=== PATIENT | male | born 1965 | race African-American/Black ===

== ENCOUNTER 2022-09-24 20:28 | Emergency (ER) | payer OTHER ==
[~2022-09-24] VITALS: Ht 177.8 cm; Wt 73.0 kg
[2022-09-24] MEDS ORDERED: METOCLOPRAMIDE HCL 10MG TABLET PO ONE (21:00)
[2022-09-24] MEDS ORDERED: ACETAMINOPHEN 325MG TABLET PO ONE (21:00)
[2022-09-24 21:25] LABS: BG BASE EXCESS 0.1 mmol/L (-2.0-2.0); BG CARBOXYHEMOGLOBIN 0.7 % (0.5-1.5); BG DEOXYHEMOGLOBIN 2.1 % (0.0-5.0); BG FRACTION INSPIRED OXYGEN 21; BG HCO3 ACT 24.4 mmol/L (22.0-26.0); BG METHEMOGLOBIN 0.3 % (0.0-1.5); BG OXYGEN SATURATION 97.9 % (92.0-98.5); BG OXYHEMOGLOBIN 96.9 % (94.0-97.0); BG PCO2 38.6 mmHg (35.0-45.0); BG PH 7.418 (7.350-7.450); BG PO2 99.6 mmHg (75.0-100.0); BG SAMPLE SITE RIGHT RADIAL; BG TOTAL HEMOGLOBIN 15.1 g/dL (12.0-18.0); BG TOTAL RESPIRATORY RATE 18 b/min; BG VENT MODE ROOM AIR
[2022-09-24 22:00] VITALS: BP 141/89
[2022-09-24] MEDS ORDERED: IBUP-2030 MT (22:01)
== END 2022-09-24 22:23 | disposition home or self-care (01) ==
LOC: ER 20:28
DX: R51.9 Headache, unspecified (principal)
CPT/HCPCS: 36600; 82375; 82805; 99283; J8597; Z7610